=== PATIENT | male | born 1965 | race Caucasian/White ===

== ENCOUNTER 2017-05-07 21:37 | Emergency (ER) | payer SELFPAY ==
[~2017-05-07] VITALS: Ht 167.6 cm; Wt 86.5 kg
[2017-05-07 21:49] VITALS: Ht 167.6 cm; Wt 86.5 kg
[2017-05-08] MEDS ORDERED: LEVE-5 PO (11:04)
[2017-05-08] MEDS ORDERED: ALBU18HF INHALATION (11:07)
[2017-05-08] MEDS ORDERED: LEVE750T32 PO (11:07)
== END 2017-05-08 00:55 | disposition left against medical advice (07) ==
LOC: E/R 21:37
DX: Z53.21 Procedure and treatment not carried out due to patient leaving prior to being seen by health care provider (principal)

== ENCOUNTER 2017-05-08 07:29 | Inpatient (IN) | payer OTHER ==
[~2017-05-08] VITALS: Ht 175.3 cm; Wt 87.6 kg
[2017-05-08] MEDS ORDERED: PIPER-TAZO 3.375 GM IV (PMX) 100 ML IVPB STA (09:27)
[2017-05-08] MEDS ORDERED: VANCOMYCIN 1 GM (PMX) 250 ML IVPB STA (09:27)
[2017-05-08] MEDS ORDERED: SODIUM CHLORIDE 0.9% 1L BAG IV* STA (09:27)
[2017-05-08 10:12] LABS: ABNORMAL IP MESSAGE 1; BASOPHILS % 0.6 % (0.0-2.0); EOSINOPHILS # 0.1 10^3/ul (0.0-0.5); EOSINOPHILS % 4.3 % (0.0-7.0); HEMATOCRIT 34.5 % (42.0-52.0); HEMOGLOBIN 11.7 g/dl (14.0-18.0); LYMPHOCYTES # 0.4 10^3/ul (0.8-2.9); LYMPHOCYTES % 12.3 % (15.0-51.0); MEAN CORPUSCULAR HEMOGLOBIN 34.2 pg (29.0-33.0); MEAN CORPUSCULAR HGB CONC 33.9 g/dl (32.0-37.0); MEAN CORPUSCULAR VOLUME 100.9 fl (82.0-101.0); MEAN PLATELET VOLUME 8.4 fl (7.4-10.4); MONOCYTE # 0.6 10^3/ul (0.3-0.9); MONOCYTES % 17.8 % (0.0-11.0); NEUTROPHILS % 64.1 % (39.0-77.0); PLATELET COUNT 74 10^3/UL (140-415); POSITIVE DIFF @See below; RED BLOOD COUNT 3.42 10^6/ul (4.70-6.10); RED CELL DISTRIBUTION WIDTH 14.9 % (11.5-14.5); WHITE BLOOD COUNT 3.3 10^3/ul (4.8-10.8)
[2017-05-08 10:18] LABS: ADD UMIC YES; UR ASCORBIC ACID NEGATIVE (NEGATIVE); UR BILIRUBIN (Dip) NEGATIVE (NEGATIVE); UR BLOOD (Dip) 1+ mg/dL (NEGATIVE); UR CLARITY CLEAR (CLEAR); UR COLOR YELLOW (YELLOW); UR GLUCOSE (Dip) NEGATIVE (NEGATIVE); UR KETONES (Dip) NEGATIVE (NEGATIVE); UR LEUKOCYTE ESTERASE (Dip) NEGATIVE Leu/ul (NEGATIVE); UR NITRITE (Dip) NEGATIVE (NEGATIVE); UR RBC 0 /HPF (0-5); UR SPECIFIC GRAVITY (Dip) 1.004 (1.003-1.030); UR TOTAL PROTEIN (Dip) NEGATIVE (NEGATIVE); UR UROBILINOGEN (Dip) 2+ mg/dL (NEGATIVE)
[2017-05-08 10:27] LABS: INR 1.16; PROTIME 14.8 Sec (12.2-14.2); PT RATIO 1.2
[2017-05-08 10:28] LABS: PARTIAL THROMBOPLASTIN TIME 34.7 Sec (25.0-35.0)
[2017-05-08 10:30] VITALS: TEMP 96.5
[2017-05-08 10:31] LABS: ALANINE AMINOTRANSFERASE 51 IU/L (13-69); ALBUMIN 2.7 g/dl (3.3-4.9); ALBUMIN/GLOBULIN RATIO 0.71; ALKALINE PHOSPHATASE 123 IU/L (42-121); ANION GAP 8 (8-16); ASPARTATE AMINO TRANSFERASE 63 IU/L (15-46); BILIRUBIN,INDIRECT 1.5 mg/dl (0-1.1); BILIRUBIN,TOTAL 1.8 mg/dl (0.2-1.3); BLOOD UREA NITROGEN 9 mg/dl (7-20); CALCIUM 8.4 mg/dl (8.4-10.2); CARBON DIOXIDE 27 mmol/L (21-31); CHLORIDE 105 mmol/L (97-110); CREATININE 0.57 mg/dl (0.61-1.24); GLUCOSE 89 mg/dl (70-220); POTASSIUM 3.8 mmol/L (3.5-5.1); SODIUM 136 mmol/L (135-144); TOTAL PROTEIN 6.5 g/dl (6.1-8.1)
--- NOTE | 2017-05-08 10:31 | RADRPT ---
PROCEDURE: XR Tibia and Fibula. CLINICAL INDICATION: Sepsis, osteomyelitis TECHNIQUE: Two views of the right tibia and fibula are available for review. COMPARISON: None available FINDINGS: There is a skin ulcer within the lateral aspect of the distal leg at the level of the distal fibular diaphysis with small foci of adjacent calcification within the soft tissues. The skin ulcer measure s at least 1.3 cm deep. There is diffuse soft tissue swelling around the leg. There is no acute fracture or significant bony destructive changes within the tibia or fibula. [place] mpartmental osteoarthrosis is visualized within the knee more prominent within the lateral compartme nt. RPTAT: EE IMPRESSION: 1. Skin ulcer within the lateral aspect of the distal leg with diffuse soft tissue swelling around the leg which may be from cellulitis. 2. No acute fracture or bony destructive changes to suggest osteomyelitis. .Cassi Meza MD, Date Time Electronically viewed and signed by .Cassi Meza MD, on 05/08/2017 10:36 .T/
--- NOTE | 2017-05-08 10:32 | RADRPT ---
PROCEDURE: XR Tibia and Fibula. CLINICAL INDICATION: Sepsis, osteomyelitis TECHNIQUE: Two views of the left tibia and fibula are available for review. COMPARISON: None available FINDINGS: The left tibia and fibula are intact. There is no acute fracture or bony destructive changes. No r adiopaque foreign body is identified. There is diffuse soft tissue swelling around the leg. RPTAT: EE IMPRESSION: 1. Diffuse soft tissue swelling around the leg which can be seen with cellulitis. 2. No acute fracture or bony destructive changes to suggest osteomyelitis. .Cassi Meza MD, Date Time Electronically viewed and signed by .Cassi Meza MD, MD on 05/08/2017 10:38 .T/
[2017-05-08 10:42] LABS: TROPONIN-I < 0.012 ng/ml (0.00-0.12)
--- NOTE | 2017-05-08 10:43 | RADRPT ---
PROCEDURE: XR Chest. CLINICAL INDICATION: Shortness of breath TECHNIQUE: Single view of the chest COMPARISON: No prior study is available for comparison. FINDINGS: The lungs are clear. The cardiac silhouette is mildly enlarged . There are mildly increased interstitial opacities that a re probably related to vascular congestion, less likely atypical infection. There is no pleural effusion. There is no pneumothorax. There is a probable chronic left third rib fracture. There also appears to be a remote trauma at the right humeral head chronic full-thickness right-side rotator cuff tear. IMPRESSION: 1. Mildly enlarged cardiac silhouette. 2. Increased interstitial opacities probably reflect mild vascular congestion, less likely atypical infectious or inflammatory process. 3. No focal consolidation. RPTAT: UU .John Nava MD, Date Time Electronically viewed and signed by .John Nava MD, on 05/08/2017 10:43 .K/
[2017-05-08] MEDS ORDERED: LEVE-5 PO (11:04)
[2017-05-08] MEDS ORDERED: ALBU18HF INHALATION (11:07)
[2017-05-08] MEDS ORDERED: LEVE750T32 PO (11:07)
--- NOTE | 2017-05-08 11:18 | RADRPT ---
PROCEDURE: US bilateral lower extremity veins. CLINICAL INDICATION: Bilateral leg pain and swelling. TECHNIQUE: Multiple longitudinal and transverse images of the bilateral lower extremity veins were obtained with chandra scale and color Doppler imaging. The common femoral vein, femoral vein, and popl iteal vein were evaluated. 2D grayscale measurements with compression sonography, color Doppler, and pulsed Doppler with augmentation. COMPARISON: No prior studies are available for comparison. FINDINGS: The bilateral common femoral, femoral and popliteal veins are normally compressible throughout. Col or flow demonstrates normal filling of the vessels. Normal waveforms are visualized and there is no rmal response to augmentation. IMPRESSION: 1. No evidence of deep vein thrombosis involving either lower extremity. RPTAT: QQ .Mo Pena MD, MD Date Time Electronically viewed and signed by .Mo Pena MD, on 05/08/2017 11:18 .R/
[2017-05-08] MEDS ORDERED: LORAZEPAM 2 MG INJ IV ONE (11:30)
--- NOTE | 2017-05-08 14:00 | ERA ---
ER Documentation Chief Complaint Date/Time DATE: 05/08/17 TIME: 13:56 Chief Complaint pt bib self with multi complaints , pain all over, seen last night,homeless HPI 52-year-old, undomiciled male with a history of liver cirrhosis, hepatitis C, chronic alcohol abuse, seizure disorder, chronic lower extremity swelling and right lower extremity ulcer presents to the ED complaining of several day history of severe pain, redness and swelling of the left lower leg. Unable to bear weight. Denies chest pain, shortness of breath or palpitations. No abdominal pain, nausea vomiting. Last drink was several days ago and feels tremulous but denies hallucinations. No visual changes, focal weakness or numbness. Subjective fevers and chills. ROS All systems reviewed and are negative except as per history of present illness. Medications Home Meds Reported Medications Albuterol Sulfate* (Ventolin HFA*) 18 Gm Hfa.aer.ad, 2 PUFF INHALATION Q6H, #1 INHALER 05/08/17 Levetiracetam* (Keppra XR*) 750 Mg Tab.sr.24h, 750 MG PO BID, TAB 05/08/17 Discontinued Reported Medications Levetiracetam* (Keppra*) 500 Mg Tablet, 500 MG PO BID, TAB 05/08/17 Allergies Allergies: Coded Allergies: No Known Allergy (Unverified , 05/08/17) PMhx/Soc As per HPI History of Surgery: No Anesthesia Reaction: No Hx Neurological Disorder: Yes (Seizures) Hx Respiratory Disorders: Yes (COPD) Hx Cardiac Disorders: Yes (Chronic Hypotension) Hx Psychiatric Problems: Yes (Polysubstance Abuse) Hx Miscellaneous Medical Probl: Yes (Hepatitis C) Hx Alcohol Use: Yes Hx Substance Use: Yes Hx Tobacco Use: Yes Smoking Status: Current every day smoker FmHx No stroke or cancer Physical Exam Vitals Vital Signs Date Time Temp Pulse Resp B/P Pulse Ox O2 Delivery O2 Flow Rate FiO2 05/08/17 12:08 78 18 124/83 95 Room Air 05/08/17 10:30 96.5 85 18 120/86 96 Room Air 05/08/17 09:59 0 05/08/17 07:33 97.3 79 18 121/73 98 Physical Exam Const: Alert, poor hygiene, anxious in moderate distress Head: Atraumatic Eyes: Normal Conjunctiva ENT: Normal External Ears, Nose and Mouth. Neck: Full range of motion..~ No meningismus. Resp: Clear to auscultation bilaterally Cardio: Regular rate and rhythm, no murmurs Abd: Soft, non tender, non distended. Normal bowel sounds Skin: No petechiae or rashes Back: No midline or flank tendern Ext: Right lower extremity: 2+ swelling with 4 cm ulceration lateral calf. Mild tenderness but with small purulent drainage. Left lower extremity: Tender. 3+ swelling extending from below the knee to foot. Calor and rubor. No subcutaneous crepitus. No lymphangitic streaking. No inguinal lymphadenopathy. Neur: Awake and alert. Tremulous. No focal deficit. Psych: Anxious. Denies hallucinations. no SI/HI Result Diagram: 05/08/1795305/08/17953 Results 24 hrs Laboratory Tests Test 05/08/17 09:45 05/08/17 09:54 Urine Color YELLOW Urine Clarity CLEAR Urine pH 7.0 Urine Specific [place] 1.004 Urine Ketones NEGATIVEmg/dL Urine Nitrite NEGATIVEmg/dL Urine Bilirubin NEGATIVEmg/dL Urine Urobilinogen 2+mg/dL Urine Leukocyte Esterase NEGATIVELeu/ul Urine Microscopic RBC 0/HPF Urine Microscopic WBC 0/HPF Urine Hemoglobin 1+mg/dL Urine Glucose NEGATIVEmg/dL Urine Total Protein NEGATIVEmg/dl White Blood Count 3.310^3/ul Red Blood Count 3.4210^6/ul Hemoglobin 11.7g/dl Hematocrit 34.5% Mean Corpuscular Volume 100.9fl Mean Corpuscular Hemoglobin 34.2pg Mean Corpuscular Hemoglobin Concent 33.9g/dl Red Cell Distribution Width 14.9% Platelet Count 7410^3/UL Mean Platelet Volume 8.4fl Neutrophils % 64.1% Lymphocytes % 12.3% Monocytes % 17.8% Eosinophils % 4.3% Basophils % 0.6% Nucleated Red Blood Cells % 0.0/100WBC Neutrophils # (Manual) 2.110^3/ul Lymphocytes # 0.410^3/ul Monocytes # 0.610^3/ul Eosinophils # 0.110^3/ul Basophils # 0.010^3/ul Nucleated Red Blood Cells # 0.010^3/ul Prothrombin Time 14.8Sec Prothrombin Time Ratio 1.2 INR International Normalized Ratio 1.16 Activated Partial Thromboplast Time 34.7Sec Sodium Level 136mmol/L Potassium Level 3.8mmol/L Chloride Level 105mmol/L Carbon Dioxide Level 27mmol/L Anion Gap 8 Blood Urea Nitrogen 9mg/dl Creatinine 0.57mg/dl Glucose Level 89mg/dl Lactic Acid Level 1.7mmol/L Calcium Level 8.4mg/dl Total Bilirubin 1.8mg/dl Direct Bilirubin 0.30mg/dl Indirect Bilirubin 1.5mg/dl Aspartate Amino Transf (AST/SGOT) 63IU/L Alanine Aminotransferase (ALT/SGPT) 51IU/L Alkaline Phosphatase 123IU/L Troponin I < 0.012ng/ml Total Protein 6.5g/dl Albumin 2.7g/dl Globulin 3.80g/dl Albumin/Globulin Ratio 0.71 Ethyl Alcohol Level < 10.0mg/dl Current Medications Medications (Trade) Dose Ordered Sig/Tacho Route PRN Reason Start Time Stop Time Status Last Admin Dose Admin Sodium Chloride 2620 ml 2,620 ml BOLUS OVER 2 HOURS STAT IV* 05/08/17 09:27 05/08/17 09:30 DC 05/08/17 10:02 Vancomycin HCl 250 ml @ 125 mls/hr ONCE STAT IVPB 05/08/17 09:27 05/08/17 11:26 DC 05/08/17 09:27 Piperacillin Sod/ Tazobactam Sod (Zosyn 3.375gm/ 100 ml (Pmx)) 100 ml @ 100 mls/hr ONCE STAT IVPB 05/08/17 09:27 05/08/17 10:26 DC 05/08/17 10:02 Lorazepam (Ativan) 1 mg ONCE ONCE IV 05/08/17 11:30 05/08/17 11:31 DC 05/08/17 11:12 Procedures/MDM DOCUMENTS REVIEWED: ED nurse. No records available. MEDICAL DECISION MAKIN-year-old, undomiciled male with a history of liver cirrhosis, hepatitis C, chronic alcohol abuse, seizure disorder, chronic lower extremity swelling and right lower extremity ulcer presents to the ED complaining of several day history of severe pain, redness and swelling of the left lower leg. Patient with hypo-thermia, and leukopenia consistent with systemic inflammatory response syndrome and sepsis secondary to cellulitis of the lower extremity. Lactic is less than 2. No criteria for severe sepsis or septic shock. Patient received normal saline 30 cc/kg bolus and antibiotics after cultures. Bilateral lower extremity swelling, venous Dopplers negative for deep vein thrombosis. Tremulousness and anxiety consistent with alcohol withdrawal but no hallucinations or delirium tremens. Patient's infectious symptoms have not stabilized and the patient is at risk of rapid decompensation. The patient will be admitted for careful hydration, antibiotic therapy, and infectious source control. Counseled patient regarding diagnosis, diagnostic results and plan for admission. CALLS/CONSULTS: Time 13:39, Dr. Valerio Marcos, Recommends Admission to med/surg. PATIENT CARE TRANSITIONED: Time: 14:20, Dr. Marcos. Critical Care Time: 35 minutes Treatments/Evaluations: Close monitoring and treatment of unstable vital signs, cardiorespiratory, and neurologic status, while maintaining tight balance of fluid, respiratory, and cardiac interventions. This includes the administration of emergency fluid management while maintaining close respiratory support as well as the provision of immediate and broad-spectrum antibiotic therapy, while performing a simultaneous assessment for possible sources in order to direct targeted therapy. This time includes discussing the case with the patient and the patient's family. This time also includes the consideration for invasive and chemical support to prevent cardiopulmonary collapse. This time does not include all procedures stated elsewhere in this record. This time also includes reviewing old records, labs and radiological studies. This time includes examining and re-examining the patient. Additionally, this time also includes arranging care with admitting and consulting physicians. Departure Diagnosis: Primary Impression: Sepsis Qualified Code: A41.9 - Sepsis, due to unspecified organism Additional Impressions: Cellulitis of left leg SIRS (systemic inflammatory response syndrome) Alcohol withdrawal Qualified Code: F10.230 - Alcohol withdrawal syndrome without complication Hep C w/o coma, chronic Condition: Serious KRISTIN LOU MD May 08, 2017 14:00
[2017-05-08] MEDS ORDERED: LEVETIRACETAM 1000 MG (PMX) 100 ML IVPB ONE (14:30)
[2017-05-08] MEDS ORDERED: ONDANSETRON 4 MG INJ IV PRN ×2 (15:00→15:30)
[2017-05-08] MEDS ORDERED: ACETAMINOPHEN 325 MG TAB PO PRN (15:00)
[2017-05-08 15:14] VITALS: PULSE 82
[2017-05-08] MEDS ORDERED: NACL 0.9% 3 ML SYG IV SCH (15:30)
--- NOTE | 2017-05-08 16:20 | HP ---
Date/Time of Note Date/Time of Note DATE: 05/08/17 TIME: 16:20 Assessment/Plan VTE Prophylaxis VTE Prophylaxis Intervention: contraindicated Assessment/Plan Chief Complaint/Hosp Course 1. Bilateral lower extremity edema with venous stasis changes and possible left lower extremity cellulitis. Patient will be treated with appropriate antibiotics. The patient will be adequately diuresed. 2. Alcoholic liver disease. The patient will be started on Lasix and Aldactone. 3. Seizure disorder. The patient will be continued on Keppra. 4. Pancytopenia. Most probably secondary to underlying alcoholic liver disease. Monitor blood components and transfuse as needed. 5. Alcoholism. As per the ER notes, the patient's last drink was a few days ago. The patient's serum alcohol level was not elevated. The patient will be started on PRN IV benzodiazepines for any alcohol withdrawal delirium. 6. Homeless status. Obtain Social Work consult. Plan: The patient will be admitted to inpatient medical/surgical floor. The patient will be started on a regular diet. The patient will remain a full code. Activities will be as tolerated. The rest of the patient's management will be based on the clinical course and the results of diagnostic studies. Based on the patient's clinical presentation, he most probably requires at least 2 midnights' stay for further management and evaluation of his clinical presentation. The case and management of this patient was fully discussed with Dr. Mendoza. Problems: HPI/ROS Admit Date/Time Admit Date/Time Hx of Present Illness This is a 52-year-old male with past medical history of hepatitis C, alcohol abuse, and seizure disorder who is homeless. Patient came to the ER because of multiple complaints. Patient complained of bilateral lower extremity edema and redness with associated pain. The patient was complaining of pain all over the body, especially bilateral lower extremities. The patient was noticed to have hypothermia. The patient has underlying pancytopenia, most probably secondary to alcoholic liver disease. The patient's lactic acid levels were within normal limits. The patient was noted to have hyperbilirubinemia with transaminitis. The patient's ethyl alcohol level was less than 10. In the emergency room, the patient was treated with IV vancomycin and IV Zosyn. The patient was also given IV boluses in the emergency room. ROS Unable to obtain a meaningful review of systems. PMH/Family/Social Past Medical History Medical History: hepatitis, other (Seizures, cirrhosis) Past Surgical History Unable to elicit. Social History The patient is homeless. Alcohol Use: heavy Smoking Status: Current every day smoker Drug Use: cocaine, other (amphetamine) Exam/Review of Systems Vital Signs Vitals Vital Signs Date Time Temp Pulse Resp B/P Pulse Ox O2 Delivery O2 Flow Rate FiO2 05/08/17 15:14 82 14 118/82 99 Room Air 05/08/17 10:30 96.5 05/08/17 09:59 0 Exam Exam General: Adequately build 52 year-old male lying in bed who looks disheveled. HEENT: Normocephalic, atraumatic. Eyes: Anicteric sclerae, conjunctivae clear. ENT: Nasal septum midline, oral mucosa moist. Neck supple. JVD noticed. Respiratory: Bilaterally diminished breath sounds. No use of accessory muscles of respiration. No adventitious breath sounds. Cardiovascular: S1, S2 heard. Regular rate and rhythm. Abdomen: Soft, nontender, and distended. Bowel sounds positive in all 4 quadrants. Genitourinary: Deferred. Extremities: No cyanosis. Pedal pulses non-palpable. B/L LE edema with venous stasis changes. Left carpenter erythema. Blisters on the left foot dorsal aspect. Circumferential wound on the right carpenter laterally. Neurologic: Patient is somnolent. Wakes up to call and falls asleep. Skin: Normal skin turgor. No skin rashes. Labs Result Diagram: 05/08/17 0954 05/08/17 0954 Medications Medications Current Medications Ondansetron HCl (Zofran Inj) 4 mg Q6H PRN IV NAUSEA AND/OR VOMITING; Start 05/08 at 15:30 Acetaminophen/ Hydrocodone Bitart ([place] (5/325)) 1 tab Q6H PRN PO MODERATE PAIN LEVEL 4-6; Start 05/08/17 at 15:30 Miscellaneous Information 750 mg BID PO ; Start 05/08/17 at 21:00; Status UNV Furosemide (Lasix) 40 mg DAILY PO ; Start 05/09/17 at 09:00 Spironolactone (Aldactone) 100 mg DAILY PO ; Start 05/09/17 at 09:00 Procedures Procedures B/L LE venous Doppler Study. IMPRESSION: 1. No evidence of deep vein thrombosis involving either lower extremity. XR Left Tibia and Fibula IMPRESSION: 1. Diffuse soft tissue swelling around the leg which can be seen with cellulitis. 2. No acute fracture or bony destructive changes to suggest osteomyelitis. XR Right Tibia and Fibula IMPRESSION: 1. Skin ulcer within the lateral aspect of the distal leg with diffuse soft tissue swelling around the leg which may be from cellulitis. 2. No acute fracture or bony destructive changes to suggest osteomyelitis. ADRIANE OROZCO NP May 08, 2017 16:20
[2017-05-08] MEDS ORDERED: VANCOMYCIN IV PER PHARMACY XX SCH (16:30)
[2017-05-08] MEDS: LEVOFLOXACIN 500MG/D5W (PMX) 100 ML IVPB SCH (17:30)
[2017-05-08] MEDS: VANCOMYCIN 1.75 GM in NS 500 ML IVPB SCH (18:00)
[2017-05-08] MEDS ORDERED: VANCOMYCIN 1.25 GM in SOD CHLORIDE 0.9% 250 ML IVPB SCH (18:30)
[2017-05-08 20:00] VITALS: Ht 175.3 cm; Wt 87.6 kg
[2017-05-08] MEDS ORDERED: VANCOMYCIN 1.75 GM in NS 500 ML IVPB SCH (20:00)
[2017-05-08 20:14] LABS: BARBITURATES Negative (NEGATIVE); BENZODIAZEPINES Negative (NEGATIVE); CANNABINOIDS Negative (NEGATIVE); COCAINE Positive (NEGATIVE); OPIATES Negative (NEGATIVE)
[2017-05-08] MEDS ORDERED: LEVETIRACETAM 750 MG PO SCH (21:00)
[2017-05-08 21:04] VITALS: BP 107/64; RESP 18
[2017-05-08] MEDS ORDERED: PENDING SANTYL ORDER FOR WOUND CARE XX PRN (23:30)
[2017-05-09 02:48] VITALS: BP 108/63; RESP 20
[2017-05-09] MEDS: HYDROCODONE/APAP (5/325) TAB PO PRN ×3 (04:13→21:20)
[2017-05-09] MEDS ORDERED: COLLAGENASE 30 GM TUBE TOP PRN (04:30)
[2017-05-09] MEDS: VANCOMYCIN 1.75 GM in NS 500 ML IVPB SCH ×2 (05:14→18:50)
[2017-05-09] MEDS ORDERED: KETOROLAC 30 MG INJ IV STA (06:42)
[2017-05-09 06:44] LABS: ABNORMAL IP MESSAGE 1; BASOPHILS % 0.6 % (0.0-2.0); EOSINOPHILS # 0.1 10^3/ul (0.0-0.5); EOSINOPHILS % 3.2 % (0.0-7.0); HEMATOCRIT 33.1 % (42.0-52.0); HEMOGLOBIN 10.7 g/dl (14.0-18.0); LYMPHOCYTES # 0.3 10^3/ul (0.8-2.9); LYMPHOCYTES % 10.7 % (15.0-51.0); MEAN CORPUSCULAR HEMOGLOBIN 32.7 pg (29.0-33.0); MEAN CORPUSCULAR HGB CONC 32.3 g/dl (32.0-37.0); MEAN CORPUSCULAR VOLUME 101.2 fl (82.0-101.0); MEAN PLATELET VOLUME 8.6 fl (7.4-10.4); MONOCYTE # 0.5 10^3/ul (0.3-0.9); MONOCYTES % 14.6 % (0.0-11.0); NEUTROPHILS % 70.3 % (39.0-77.0); PLATELET COUNT 72 10^3/UL (140-415); POSITIVE DIFF @See below; RED BLOOD COUNT 3.27 10^6/ul (4.70-6.10); WHITE BLOOD COUNT 3.1 10^3/ul (4.8-10.8)
[2017-05-09] MEDS ORDERED: ALBUTEROL/IPRATROPIUM (NEB) 3 ML AMP HHN STA (06:55)
[2017-05-09] MEDS ORDERED: BISACODYL (EC) 5 MG TAB PO PRN (07:00)
[2017-05-09 07:01] LABS: ALBUMIN 2.1 g/dl (3.3-4.9); ALBUMIN/GLOBULIN RATIO 0.67; BILIRUBIN,DIRECT 0.1 mg/dl (0.00-0.20); BILIRUBIN,INDIRECT 0.9 mg/dl (0-1.1); CALCIUM 8.2 mg/dl (8.4-10.2); CREATININE 0.57 mg/dl (0.61-1.24); POTASSIUM 4.2 mmol/L (3.5-5.1); TOTAL PROTEIN 5.2 g/dl (6.1-8.1)
[2017-05-09 07:04] LABS: MAGNESIUM 1.8 mg/dl (1.7-2.5); PHOSPHORUS 2.5 mg/dl (2.5-4.9)
[2017-05-09 08:22] VITALS: BP 93/52; RESP 18
[2017-05-09] MEDS: FUROSEMIDE 40 MG TAB PO SCH (09:00)
[2017-05-09] MEDS: SPIRONOLACTONE 50 MG TAB PO SCH (09:43)
[2017-05-09] MEDS: DOCUSATE SODIUM 100 MG CAP PO SCH ×2 (09:43→21:19)
[2017-05-09] MEDS: LEVETIRACETAM 500 MG TAB PO SCH ×2 (09:44→21:19)
[2017-05-09] MEDS: COLLAGENASE 30 GM TUBE TOP SCH (11:20)
--- NOTE | 2017-05-09 11:39 | PN ---
Date/Time of Note Date/Time of Note DATE: 05/09/17 TIME: 11:36 Assessment/Plan VTE Prophylaxis VTE Prophylaxis Intervention: contraindicated Lines/Catheters IV [facility] Urinary Cath still in place: No Assessment/Plan Chief Complaint/Hosp Course 1. Bilateral lower extremity edema with venous stasis changes and possible left lower extremity cellulitis. Patient will be treated with appropriate antibiotics. The patient will be adequately diuresed. 2. Alcoholic liver disease. The patient will be continued on on Lasix and Aldactone. 3. Seizure disorder. The patient will be continued on Keppra. 4. Pancytopenia. Most probably secondary to underlying alcoholic liver disease. Monitor blood components and transfuse as needed. 5. Alcoholism. As per the ER notes, the patient's last drink was a few days ago. The patient's serum alcohol level was not elevated. The patient will be continued on PRN IV benzodiazepines for any alcohol withdrawal delirium. Will continue thiamine. 6. Homeless status. Obtain Social Work consult. 7. Polysubstance abuse. Social work consult will be obtained. 8. Fluids, electrolytes, and nutrition. Low-sodium diet. 9. DVT prophylaxis. Contraindicated. 10. Plan. Continue current management. PT evaluation. The case and management of this patient was fully discussed with Dr. Mendoza. Problems: Subjective 24 Hr Interval Summary Free Text/Dictation Complains of pain all over the body. Remains afebrile. Exam/Review of Systems Vital Signs Vitals Vital Signs Date Time Temp Pulse Resp B/P Pulse Ox O2 Delivery O2 Flow Rate FiO2 05/09/17 08:22 98.4 86 18 93/52 98 05/09/17 08:05 Nasal Cannula 2.0 Intake and Output 05/08/17 05/08/17 05/09/17 14:59 22:59 06:59 Intake Total 2040 ml Output Total 850 ml Balance 1190 ml Exam General: Adequately build 52 year-old male lying in bed who looks disheveled. HEENT: Normocephalic, atraumatic. Eyes: Anicteric sclerae, conjunctivae clear. ENT: Nasal septum midline, oral mucosa moist. Neck supple. JVD noticed. Respiratory: Bilaterally diminished breath sounds. No use of accessory muscles of respiration. No adventitious breath sounds. Cardiovascular: S1, S2 heard. Regular rate and rhythm. Abdomen: Soft, nontender, and distended. Bowel sounds positive in all 4 quadrants. Genitourinary: Deferred. Extremities: No cyanosis. Pedal pulses non-palpable. B/L LE edema with venous stasis changes. Left carpenter erythema. Blisters on the left foot dorsal aspect. Circumferential wound on the right carpenter laterally. Neurologic: Patient is awake, alert, and oriented. Skin: Normal skin turgor. No skin rashes. Results Result Diagram: 05/09/17 0542 05/09/17 0542 Results 24 hrs Laboratory Tests Test 05/08/17 15:50 05/08/17 22:37 05/09/17 05:42 Lactic Acid Level 1.5 1.3 White Blood Count 3.1 L Red Blood Count 3.27 L Hemoglobin 10.7 L Hematocrit 33.1 L Mean Corpuscular Volume 101.2 H Mean Corpuscular Hemoglobin 32.7 Mean Corpuscular Hemoglobin Concent 32.3 Red Cell Distribution Width 15.0 H Platelet Count 72 L Mean Platelet Volume 8.6 Neutrophils % 70.3 Lymphocytes % 10.7 L Monocytes % 14.6 H Eosinophils % 3.2 Basophils % 0.6 Nucleated Red Blood Cells % 0.0 Neutrophils # (Manual) 2.2 Lymphocytes # 0.3 L Monocytes # 0.5 Eosinophils # 0.1 Basophils # 0.0 Nucleated Red Blood Cells # 0.0 Sodium Level 136 Potassium Level 4.2 Chloride Level 109 Carbon Dioxide Level 23 Anion Gap 8 Blood Urea Nitrogen 12 Creatinine 0.57 L Glucose Level 98 Calcium Level 8.2 L Phosphorus Level 2.5 Magnesium Level 1.8 Total Bilirubin 1.0 Direct Bilirubin 0.10 # Indirect Bilirubin 0.9 Aspartate Amino Transf (AST/SGOT) 64 H Alanine Aminotransferase (ALT/SGPT) 48 Alkaline Phosphatase 99 Total Protein 5.2 #L Albumin 2.1 L Globulin 3.10 Albumin/Globulin Ratio 0.67 Medications Medications Current Medications Ondansetron HCl (Zofran Inj) 4 mg Q6H PRN IV NAUSEA AND/OR VOMITING; Start 05/08 at 15:30 Acetaminophen/ Hydrocodone Bitart ([place] (5/325)) 1 tab Q6H PRN PO MODERATE PAIN LEVEL 4-6 Last administered on 05/09/17t 04:13; Admin Dose 1 TAB; Start 05/08/17 at 15:30 Furosemide (Lasix) 40 mg DAILY PO ; Start 05/09/17 at 09:00 Spironolactone 100 mg 100 mg DAILY PO Last administered on 05/09/17 09:43; Admin Dose 100 MG; Start 05/09/17 at 09:00 Levofloxacin/ Dextrose 100 ml @ 100 mls/hr Q24H IVPB Last administered on 17:30; Admin Dose 100 MLS/HR; Start 05/08/17 at 16:30 Vancomycin HCl/ Sodium Chloride (Vancocin/NS) 500 ml @ 125 mls/hr Q12H IVPB Last administered on 05/09/17 05:14; Admin Dose 125 MLS/HR; Start 05/08/17 at 18 :00 Lorazepam (Ativan) 1 mg Q2H PRN IV Anxiety; Start 05/08/17 at 18:00 Miscellaneous Information (Pending Santyl Order For Wound Care) This patient henriquez... PRN PRN XX WOUND CARE; Start 05/08/17 at 23:30 Collagenase (Santyl) 1 applic DAILY TOP ; Start 05/09/17 at 09:00 Collagenase (Santyl) 1 applic PRN PRN TOP PRN; Start 05/09/17 at 04:30 Levetiracetam (Keppra) 500 mg BID PO Last administered on 05/09/17 09:44; Admin Dose 500 MG; Start 05/09/17 at 09:00 Docusate Sodium (Colace) 100 mg BID PO Last administered on 05/09/17 09:43; Admin Dose 100 MG; Start 05/09/17 at 09:00 Bisacodyl (Dulcolax) 5 mg DAILY PRN PO CONSTIPATION; Start 05/09/17 at 07:00 ADRIANE OROZCO NP May 09, 2017 11:39
[2017-05-09 11:52] LABS: CHOL/HDL RATIO 3.2 RATIO
[2017-05-09 12:23] LABS: THYROID STIMULATING HORMONE 2.14 MIU/L (0.465-4.680)
[2017-05-09] MEDS: THIAMINE 100 MG TAB PO SCH (12:36)
[2017-05-09 15:07] VITALS: BP 95/50; RESP 20
[2017-05-09] MEDS: LEVOFLOXACIN 500MG/D5W (PMX) 100 ML IVPB SCH (16:08)
[2017-05-09] MEDS: LORAZEPAM 2 MG INJ IV PRN (19:39)
[2017-05-09 20:07] VITALS: BP 101/62; RESP 21
[2017-05-10] MEDS: LORAZEPAM 2 MG INJ IV PRN (02:01)
[2017-05-10 02:30] VITALS: BP 107/55; RESP 18
[2017-05-10] MEDS: VANCOMYCIN 1.75 GM in NS 500 ML IVPB SCH (05:04)
[2017-05-10] MEDS: HYDROCODONE/APAP (5/325) TAB PO PRN ×3 (05:04→12:47)
[2017-05-10 05:43] LABS: ABNORMAL IP MESSAGE 1; HEMATOCRIT 33.7 % (42.0-52.0); HEMOGLOBIN 11.2 g/dl (14.0-18.0); MEAN CORPUSCULAR HEMOGLOBIN 33.7 pg (29.0-33.0); MEAN CORPUSCULAR HGB CONC 33.2 g/dl (32.0-37.0); MEAN CORPUSCULAR VOLUME 101.5 fl (82.0-101.0); PLATELET COUNT 80 10^3/UL (140-415); POSITIVE DIFF @See below; RED BLOOD COUNT 3.32 10^6/ul (4.70-6.10); RED CELL DISTRIBUTION WIDTH 14.9 % (11.5-14.5); WHITE BLOOD COUNT 2.1 10^3/ul (4.8-10.8)
[2017-05-10] MEDS ORDERED: MAGNESIUM CITRATE 300 ML BTL PO ONE (06:00)
[2017-05-10 06:05] LABS: MAGNESIUM 1.7 mg/dl (1.7-2.5); PHOSPHORUS 3.4 mg/dl (2.5-4.9)
[2017-05-10 06:19] LABS: CALCIUM 8.3 mg/dl (8.4-10.2); CREATININE 0.62 mg/dl (0.61-1.24); POTASSIUM 4.2 mmol/L (3.5-5.1)
[2017-05-10 08:00] VITALS: BP 100/61; RESP 20
[2017-05-10] MEDS ORDERED: POLYETHYLENE GLYCOL 17 GM PACKET PO SCH (09:00)
[2017-05-10] MEDS: COLLAGENASE 30 GM TUBE TOP SCH (09:00)
[2017-05-10] MEDS: FUROSEMIDE 40 MG TAB PO SCH (09:00)
[2017-05-10] MEDS: DOCUSATE SODIUM 100 MG CAP PO SCH (09:17)
[2017-05-10] MEDS: LEVETIRACETAM 500 MG TAB PO SCH (09:17)
[2017-05-10] MEDS: SPIRONOLACTONE 50 MG TAB PO SCH (09:17)
[2017-05-10] MEDS: THIAMINE 100 MG TAB PO SCH (09:17)
[2017-05-10 10:25] LABS: ANISOCYTOSIS 1+ (0-0); BASOPHILS % (M) 4 % (0-2); EOSINOPHILS % (M) 10 % (0-7); MONOCYTES % (M) 16 % (0-11); PLATELET ESTIMATE DECREASED; POLYCHROMASIA 2+ (0-0)
[2017-05-10] MEDS ORDERED: FURO40TA4 PO (14:10)
[2017-05-10] MEDS ORDERED: SPIR50TA PO (14:10)
[2017-05-10] MEDS ORDERED: CEPH500C PO (14:10)
--- NOTE | 2017-05-10 14:23 | DS ---
Date/Time of Note Date/Time of Note DATE: 05/10/17 TIME: 14:19 Discharge Summary Admission/Discharge Info Admit Date/Time May 08, 2017 at 14:48 Discharge Date/Time Discharge Diagnosis 1. Bilateral lower extremity edema with venous stasis and lower extremity cellulitis, continue diuretics and keflex 2. Alcoholic liver disease, on Lasix and Aldactone. follow up with PCP 3. Seizure disorder. stable on Keppra. 4. Pancytopenia. Most probably secondary to underlying alcoholic liver disease. Monitor blood components and transfuse as needed. 5. Alcoholism. no withdrawal symptoms, advise to quirt. Patient Condition: Stable Hx of Present Illness This is a 52-year-old male with past medical history of hepatitis C, alcohol abuse, and seizure disorder who is homeless. Patient came to the ER because of multiple complaints. Patient complained of bilateral lower extremity edema and redness with associated pain. The patient was complaining of pain all over the body, especially bilateral lower extremities. The patient was noticed to have hypothermia. The patient has underlying pancytopenia, most probably secondary to alcoholic liver disease. The patient's lactic acid levels were within normal limits. The patient was noted to have hyperbilirubinemia with transaminitis. The patient's ethyl alcohol level was less than 10. In the emergency room, the patient was treated with IV vancomycin and IV Zosyn. The patient was also given IV boluses in the emergency room. Hospital Course Patient is syarted on antibiotics, lasix and aldactone. He has a negative venous ultrasound. He will be on diuretics and keflex and follow up with PCP in one week. He is advised to quit drinking alcohol. Home Meds Active Scripts Cephalexin* (Cephalexin*) 500 Mg Capsule, 500 MG PO Q6 for 10 Days, #28 CAP Prov:COLIN CLEMENT MD 05/10/17 Spironolactone* (Aldactone*) 50 Mg Tablet, 100 MG PO DAILY for 30 Days, TAB Prov:COLIN CLEMENT MD 05/10/17 Furosemide* (Furosemide*) 40 Mg Tablet, 40 MG PO DAILY for 30 Days, TAB Prov:COLIN CLEMENT MD 05/10/17 Reported Medications Albuterol Sulfate* (Ventolin HFA*) 18 Gm Hfa.aer.ad, 2 PUFF INHALATION Q6H, #1 INHALER 05/08/17 Levetiracetam* (Keppra XR*) 750 Mg Tab.sr.24h, 750 MG PO BID, TAB 05/08/17 Discontinued Reported Medications Levetiracetam* (Keppra*) 500 Mg Tablet, 500 MG PO BID, TAB 05/08/17 Follow-up Plan PCP in one week Primary Care Provider Care Physician No Primary Pending Labs Laboratory Tests Test 05/10/17 05:00 White Blood Count 2.110^3/ul (4.8-10.8) Red Blood Count 3.3210^6/ul (4.70-6.10) Hemoglobin 11.2g/dl (14.0-18.0) Hematocrit 33.7% (42.0-52.0) Mean Corpuscular Volume 101.5fl (82.0-101.0) Mean Corpuscular Hemoglobin 33.7pg (29.0-33.0) Mean Corpuscular Hemoglobin Concent 33.2g/dl (32.0-37.0) Red Cell Distribution Width 14.9% (11.5-14.5) Platelet Count 8010^3/UL (140-415) Mean Platelet Volume 9.0fl (7.4-10.4) Neutrophils % % (39.0-77.0) Segmented Neutrophils % (Manual) 49% (39-77) Band Neutrophils % (Manual) 6% (0-4) Lymphocytes % % (15.0-51.0) Lymphocytes % (Manual) 14% (15-51) Monocytes % % (0.0-11.0) Monocytes % (Manual) 16% (0-11) Eosinophils % % (0.0-7.0) Eosinophils % (Manual) 10% (0-7) Basophils % % (0.0-2.0) Basophils % (Manual) 4% (0-2) Nucleated Red Blood Cells % 0.0/100WBC (0.0-0.0) Neutrophils # (Manual) 1.010^3/ul (1.7-7.5) Band Neutrophils # 0.110^3/ul (0.0-0.6) Absolute Lymphocytes (Manual) 0.210^3/ul (0.8-2.9) Lymphocytes # 10^3/ul (0.8-2.9) Monocytes # 10^3/ul (0.3-0.9) Absolute Monocytes (Manual) 0.310^3/ul (0.3-0.9) Eosinophils # 10^3/ul (0.0-0.5) Basophils # 10^3/ul (0.0-0.1) Basophils # (Manual) 0.010^3/ul (0.0-0.0) Nucleated Red Blood Cells # 10^3/ul (0.0-0.0) Platelet Estimate DECREASED Polychromasia 2+ (0-0) Anisocytosis 1+ (0-0) Macrocytosis 1+ (0-0) Sodium Level 135mmol/L (135-144) Potassium Level 4.2mmol/L (3.5-5.1) Chloride Level 107mmol/L (97-110) Carbon Dioxide Level 25mmol/L (21-31) Anion Gap 7 (8-16) Blood Urea Nitrogen 12mg/dl (7-20) Creatinine 0.62mg/dl (0.61-1.24) Glucose Level 73mg/dl (70-220) Calcium Level 8.3mg/dl (8.4-10.2) Phosphorus Level 3.4mg/dl (2.5-4.9) Magnesium Level 1.7mg/dl (1.7-2.5) COLIN CLEMENT MD May 10, 2017 14:23
== END 2017-05-10 15:53 | disposition home or self-care (01) | DRG 872 ==
LOC: E/R 07:29 → PP2 14:48
PROVIDERS: ADMIT Internal Medicine; ATTEND Internal Medicine
DX: A41.9 Sepsis, unspecified organism (principal); D61.818 Other pancytopenia; K70.9 Alcoholic liver disease, unspecified; L03.116 Cellulitis of left lower limb; G40.909 Epilepsy, unspecified, not intractable, without status epilepticus; R60.9 Edema, unspecified; F10.20 Alcohol dependence, uncomplicated; F14.10 Cocaine abuse, uncomplicated; F15.10 Other stimulant abuse, uncomplicated; B19.20 Unspecified viral hepatitis C without hepatic coma; I87.8 Other specified disorders of veins; L98.499 Non-pressure chronic ulcer of skin of other sites with unspecified severity; F17.210 Nicotine dependence, cigarettes, uncomplicated; Z59.0 Homelessness
CPT/HCPCS: 36415; 71010; 73590; 80048; 80053; 80061; 80306; 80307; 81001; 83605; 83735; 84100; 84439; 84443; 84484; 85025; 85610; 85730; 87040; 87081; 87086; 93005; 93970; 94664; 96365; 96366; 96375; J1885; J1953; J1956; J2060; J2543; J3370; J7030; J7040; J7050